=== PATIENT | male | born 1990 | race Two or more races ===

== ENCOUNTER 2017-04-08 09:14 | Emergency (ER) | payer OTHER ==
[~2017-04-08] VITALS: Ht 182.9 cm; Wt 139.3 kg
[2017-04-08 09:20] VITALS: BP 132/99
[2017-04-08] MEDS ORDERED: IBUPROFEN 800 MG TAB PO ONE (10:15)
== END 2017-04-08 11:26 | disposition home or self-care (01) ==
LOC: ER 09:14
DX: S92.001A Unspecified fracture of right calcaneus, initial encounter for closed fracture (principal); X58.XXXA Exposure to other specified factors, initial encounter; Y93.39 Activity, other involving climbing, rappelling and jumping off; Y92.69 Other specified industrial and construction area as the place of occurrence of the external cause; Y99.8 Other external cause status
CPT/HCPCS: 29515; 73700

== ENCOUNTER 2019-02-21 08:37 | Emergency (ER) | payer MEDICAID, OTHER ==
[~2019-02-21] VITALS: Ht 190.5 cm; Wt 156.5 kg
[2019-02-21 08:56] LABS: Urine WBC None Seen /hpf (0 - 3)
[2019-02-21 09:11] LABS: Urine Bacteria NONE SEEN /hpf (None Seen); Urine Blood 3+ /uL (Negative); Urine Budding Yeast MANY /hpf (None Seen); Urine Specific Gravity 1.022 (1.001-1.035)
[2019-02-21] MEDS ORDERED: ONDANSETRON HCL 4 MG/2 ML VIAL ONE (09:16)
[2019-02-21 09:26] LABS: Basophils # (auto) 0.1 uL; Eosinophils # (auto) 0.7 uL; Monocytes # (auto) 0.6 uL; Neutrophils # (auto) 7.7 uL
[2019-02-21 09:29] LABS: Basophils % (auto) 0.7 % (0.0-2.0); Eosinophils % (auto) 5.9 % (0.0-7.0); Hemoglobin 17.2 g/dL (13.5-17.5); Lymphocytes # (auto) 2.2 uL; Lymphocytes % (auto) 19.5 % (10.0-50.0); Mean Corpuscular Hemoglobin 27.4 pg (28.0-32.0); Mean Corpuscular Hgb Conc. 33.1 g/dL (32.0-36.0); Mean Corpuscular Volume 82.9 fL (80.0-100.0); Monocytes % (auto) 5.5 % (0.0-12.0); Neutrophils % (auto) 68.4 % (37.0-80.0); Nucleated Red Blood Cells % 0.7 %; Platelet Count (auto) 272 10^3/uL (140-450); Red Blood Cells 6.27 10^6/uL (4.5-5.90); Red Cell Distribution Width 14.8 % (11.8-14.3); White Blood Cell 11.2 10^3/uL (4.4-10.8)
[2019-02-21] MEDS ORDERED: ONDANSETRON HCL 4 MG/2 ML VIAL IV ONE (09:30)
[2019-02-21 09:51] LABS: Calcium 8.7 mg/dL (8.5-10.1); Potassium 4.1 mmol/L (3.5-5.1)
[2019-02-21 09:53] LABS: BUN/Creatinine Ratio 13.2
[2019-02-21 09:57] LABS: Bilirubin, Total 0.5 mg/dL (0.2-1.0)
[2019-02-21] MEDS ORDERED: SODIUM CHLORIDE 0.9% 1,000 ML IV ONE (12:44)
[2019-02-21] MEDS ORDERED: KETOROLAC TROMETH 30 MG/ML 1ML VIAL IV ONE (12:45)
[2019-02-21] MEDS ORDERED: TAMSULOSIN HYDROCHLORIDE 0.4 MG CAP PO ONE (12:45)
[2019-02-21 15:02] VITALS: BP 106/46
== END 2019-02-21 16:00 | disposition home or self-care (01) ==
LOC: ER 08:37
DX: N20.0 Calculus of kidney (principal); E86.0 Dehydration; F17.210 Nicotine dependence, cigarettes, uncomplicated
CPT/HCPCS: 36415; 71046; 74176; 80053; 81001; 85025; 96361; 96374; 96375; 99284; J1885; J2405; J7030